=== PATIENT | male | born 1980 | race Caucasian/White ===

== ENCOUNTER 2023-05-05 07:19 | Inpatient (IN) | payer BC ==
[2023-05-05] MEDS ORDERED: ONDANSETRON 4 MG/2 ML VIAL IVP STA (07:59)
[2023-05-05] MEDS ORDERED: MORPHINE SULFATE 4 MG/ML SYRINGE IV STA (07:59)
[2023-05-05] MEDS ORDERED: SODIUM CHLORIDE 0.9% 1,000 ML IV STA (07:59)
--- NOTE | 2023-05-05 08:16 | ED ---
General Adult HPI - General Chief complaint: Abdominal Pain Stated complaint: abd pain Time Seen by Provider: 05/05/23 07:29 Source: patient, EMS Mode of arrival: EMS - History of Present Illness Initial comments: Dictation was produced using [employer] dictation software. please excuse any grammatical, word or spelling errors. Chief Complaint: 43-year-old presents with abdominal pain History of Present Illness: Patient 43-year-old male presents with abdominal pain. He states that his symptoms lasted for several hours. Pain was able to moderate sleep. Patient states the pain as well as lower abdomen. He has had some diarrhea. Does complain of fever. Has a history of appendectomy. Denies any nausea or vomiting. No history of diverticulitis. The ROS documented in this emergency department record has been reviewed and confirmed by me. Those systems with pertinent positive or negative responses have been documented in the HPI. All other systems are other negative and/or noncontributory. - Related Data Home Medications Medication Instructions Recorded Confirmed Chlorthalidone [Hygroton] 25 mg PO DAILY 05/05/23 05/05/23 Ezetimibe [Zetia] 10 mg PO DAILY 05/05/23 05/05/23 Fenofibrate [Lofibra] 160 mg PO DAILY 05/05/23 05/05/23 Metoprolol Succinate (ER) [Toprol 50 mg PO DAILY 05/05/23 05/05/23 Xl] Pravastatin Sodium [Pravachol] 80 mg PO DAILY 05/05/23 05/05/23 Allergies Allergy/AdvReac Type Severity Reaction Status Date / Time Penicillins AdvReac Unknown Verified 05/05/23 08:09 Childhood Review of Systems ROS Statement: Those systems with pertinent positive or pertinent negative responses have been documented in the HPI. ROS Other: All systems not noted in ROS Statement are negative. Past Medical History Past Medical History: Hyperlipidemia, Hypertension History of Any Multi-Drug Resistant Organisms: None Reported Past Surgical History: Appendectomy Additional Past Surgical History / Comment(s): Left hip. Back surgery, L2 Smoking Status: Current every day smoker Past Alcohol Use History: Occasional Past Drug Use History: None Reported General Exam - General Exam Comments Initial Comments: PHYSICAL EXAM: General Impression: Alert and oriented x3, acute distress due to pain HEENT: Normocephalic atraumatic, extra-ocular movements intact, pupils equal and reactive to light bilaterally, mucous membranes moist. Cardiovascular: Heart regular rate and rhythm Chest: Able to complete full sentences, no retractions, no tachypnea Abdomen: Peritoneal, palpatory tenderness through the lower abdomen Musculoskeletal: Pulses present and equal in all extremities, no peripheral edema Motor: no focal deficits noted Neurological: CN II-XII grossly intact, no focal motor or sensory deficits noted Skin: Intact with no visualized rashes Psych: Anxious Course Vital Signs 05/05/23 05/05/23 07:25 08:32 Temperature 101.2 F H Pulse Rate 109 H 105 H Respiratory 20 18 Rate Blood Pressure 139/86 145/93 O2 Sat by Pulse 98 94 L Oximetry EKG Findings - EKG Comments: EKG Findings:: My EKG interpretation: Ventricular rate 111, sinus tachycardia,. 134, QRS 80, QTC 367. No DC prolongation, no QTC prolongation, no ST or T-wave changes noted. Overall, this EKG is unremarkable Medical Decision Making - Medical Decision Making Was pt. sent in by a medical professional or institution (, PA, MUSEUM DOCENT, urgent care, hospital, or fdc...) When possible be specific @ -No Did you speak to anyone other than the patient for history (EMS, parent, family, police, friend...)? What history was obtained from this source @ - states that he had a similar brief episode couple weeks ago after eating seafood Did you review nursing and triage notes (agree or disagree)? Why? @ -I reviewed and agree with nursing and triage notes Were old charts reviewed (outside hosp., previous admission, EMS record, old EKG, old radiological studies, urgent care reports/EKG's, fdc records)? Report findings @ -No old charts were reviewed Differential Diagnosis (chest pain, altered mental status, abdominal pain women, abdominal pain men, vaginal bleeding, musculoskeletal, weakness, fever, dyspnea, syncope, headache, dizziness, GI bleed, back pain, seizure, CVA, palpatations, mental health)? @ -Differential Abdominal Pain Men: Appendicitis, cholecystitis, diverticulosis, ischemic bowel, pancreatitis, hepatitis, UTI, gastroenteritis, AAA, incarcerated hernia, bowel obstruction, constipation, inflammatory bowel, hepatitis, peptic ulcer disease, splenic infarction, perforated viscus, testicular torsion, this is not meant to be an all-inclusive list EKG interpreted by me (3pts min.). @ -None done X-rays interpreted by me (1pt min.). @ -None done CT interpreted by me (1pt min.). @ -CT abdomen and pelvis shows diverticulitis with small foci of intraperitoneal air U/S interpreted by me (1pt. min.). @ -None done What testing was considered but not performed or refused? (CT, X-rays, U/S, labs)? Why? @ -None What meds were considered but not given or refused? Why? @ -None Did you discuss the management of the patient with other professionals (professionals i.e. , PA, MUSEUM DOCENT, lab, RT, psych nurse, manager social services, clinical informatics physician, teacher, ammunition officer, employment case manager)? Give summary @ -Discussed with general surgeon for admission Was smoking cessation discussed for >3mins.? @ -No Was critical care preformed (if so, how long)? @ -No Were there social determinants of health that impacted care today? How? (Homelessness, low income, unemployed, alcoholism, drug addiction, transportation, low edu. Level, literacy, decrease access to med. care, detention, rehab)? @ -No Was there de-escalation of care discussed even if they declined (Discuss DNR or withdrawal of care, Hospice)? DNR status @ -No What co-morbidities impacted this encounter? (DM, HTN, Smoking, COPD, CAD, Cancer, CVA, ARF, Chemo, Hep., AIDS, mental health diagnosis, sleep apnea, morbid obesity)? @ -None Was patient admitted / discharged? Hospital course, mention meds given and r oute, prescriptions, significant lab abnormalities, going to OR and other pertinent info. @ -43-year-old male presents with severe abdominal pain acutely. Vital signs upon arrival shows fever of 101.2, tachycardic, rest of vital signs within acceptable limits. Leukocytosis of 19.4. Metabolic panel shows lactic acidosis of 3.0. Computed tomography scan shows Acute diverticulitis. Patient given antibiotics and analgesics. Will be admitted to general surgery for further ca re. Undiagnosed new problem with uncertain prognosis? @ -No Drug Therapy requiring intensive monitoring for toxicity (Heparin, Nitro, Insulin, Cardizem)? @ -No Were any procedures done? @ -No Diagnosis/symptom? Acute, or Chronic, or Acute on Chronic? Uncomplicated ( without systemic symptoms) or Complicated (systemic symptoms)? @ -Diverticulitis Side effects of treatment? @ -No Exacerbation, Progression, or Severe Exacerbation? @ -No Poses a threat to life or bodily function? How? (Chest pain, [place], [place], pneumonia, PE, COPD, DKA, ARF, appy, cholecystitis, CVA, Diverticulitis, Homicidal, Suicidal, threat to staff... and all critical care pts) @ -yes - Lab Data Result diagrams: 05/05/23 08:03 05/05/23 08:03 Lab Results 05/05/23 05/05/23 05/05/23 Range/Units 08:03 08:03 08:03 WBC 19.4 H (3.8-10.6) k/uL RBC 4.80 (4.30-5.90) m/uL Hgb 16.4 (13.0-17.5) gm/dL Hct 46.6 (39.0-53.0) % MCV 97.0 (80.0-100.0) fL MCH 34.2 (25.0-35.0) pg MCHC 35.3 (31.0-37.0) g/dL RDW 11.4 L (11.5-15.5) % Plt Count 249 (150-450) k/uL MPV 8.5 Neutrophils % 93 % Lymphocytes % 4 % Monocytes % 2 % Eosinophils % 0 % Basophils % 0 % Neutrophils # 18.1 H (1.3-7.7) k/uL Lymphocytes # 0.7 L (1.0-4.8) k/uL Monocytes # 0.4 (0-1.0) k/uL Eosinophils # 0.1 (0-0.7) k/uL Basophils # 0.0 (0-0.2) k/uL PT 10.3 (10.0-12.5) sec INR 0.9 (<1.2) APTT 23.3 (22.0-30.0) sec Sodium 139 (137-145) mmol/L Potassium 3.6 (3.5-5.1) mmol/L Chloride 101 (98-107) mmol/L Carbon Dioxide 23 (22-30) mmol/L Anion Gap 15 mmol/L BUN 11 (9-20) mg/dL Creatinine 0.72 (0.66-1.25) mg/dL Est GFR (CKD-EPI)AfAm >90 (>60 ml/min/1.73 sqM) Est GFR (CKD-EPI)NonAf >90 (>60 ml/min/1.73 sqM) Glucose 132 H (74-99) mg/dL Plasma Lactic Acid Palomo (0.7-2.0) mmol/L Calcium 9.6 (8.4-10.2) mg/dL Total Bilirubin 0.6 (0.2-1.3) mg/dL AST 30 (17-59) U/L ALT 41 (4-49) U/L Alkaline Phosphatase 76 (38-126) U/L Total Protein 7.1 (6.3-8.2) g/dL Albumin 4.4 (3.5-5.0) g/dL 05/05/23 Range/Units 08:03 WBC (3.8-10.6) k/uL RBC (4.30-5.90) m/uL Hgb (13.0-17.5) gm/dL Hct (39.0-53.0) % MCV (80.0-100.0) fL MCH (25.0-35.0) pg MCHC (31.0-37.0) g/dL RDW (11.5-15.5) % Plt Count (150-450) k/uL MPV Neutrophils % % Lymphocytes % % Monocytes % % Eosinophils % % Basophils % % Neutrophils # (1.3-7.7) k/uL Lymphocytes # (1.0-4.8) k/uL Monocytes # (0-1.0) k/uL Eosinophils # (0-0.7) k/uL Basophils # (0-0.2) k/uL PT (10.0-12.5) sec INR (<1.2) APTT (22.0-30.0) sec Sodium (137-145) mmol/L Potassium (3.5-5.1) mmol/L Chloride (98-107) mmol/L Carbon Dioxide (22-30) mmol/L Anion Gap mmol/L BUN (9-20) mg/dL Creatinine (0.66-1.25) mg/dL Est GFR (CKD-EPI)AfAm (>60 ml/min/1.73 sqM) Est GFR (CKD-EPI)NonAf (>60 ml/min/1.73 sqM) Glucose (74-99) mg/dL Plasma Lactic Acid Palomo 3.0 H* (0.7-2.0) mmol/L Calcium (8.4-10.2) mg/dL Total Bilirubin (0.2-1.3) mg/dL AST (17-59) U/L ALT (4-49) U/L Alkaline Phosphatase (38-126) U/L Total Protein (6.3-8.2) g/dL Albumin (3.5-5.0) g/dL Disposition Clinical Impression: Diverticulitis Disposition: ADMITTED IP TO THIS HOSP Condition: Serious Referrals: Dre Solano DO [Primary Care Provider] - 1-2 days Decision Time: 09:14
[2023-05-05 08:26] LABS: INR 0.9 (<1.2); Partial Thromboplastin Time 23.3 sec (22.0-30.0); Prothrombin Time 10.3 sec (10.0-12.5)
[2023-05-05] MEDS ORDERED: ACETAMINOPHEN IV (For NPO) 1,000 MG in EMPTY BAG 1 BAG IVPB STA (08:29)
[2023-05-05 08:35] LABS: Basophils % (A) 0 %; Eosinophils # (A) 0.1 k/uL (0-0.7); Eosinophils % (A) 0 %; HCT 46.6 % (39.0-53.0); HGB 16.4 gm/dL (13.0-17.5); Lymphocytes # (A) 0.7 k/uL (1.0-4.8); Lymphocytes % (A) 4 %; MCH 34.2 pg (25.0-35.0); MCHC 35.3 g/dL (31.0-37.0); Mean Platelet Volume 8.5; Monocytes # (A) 0.4 k/uL (0-1.0); Monocytes % (A) 2 %; Neutrophils # (A) 18.1 k/uL (1.3-7.7); Neutrophils % (A) 93 %; Platelet Count 249 k/uL (150-450); RDW 11.4 % (11.5-15.5); WBC 19.4 k/uL (3.8-10.6)
[2023-05-05 08:38] LABS: ALT 41 U/L (4-49); AST 30 U/L (17-59); African American GFR (CKD) >90 (>60 ml/min/1.73 sqM); Albumin 4.4 g/dL (3.5-5.0); Alkaline Phosphatase 76 U/L (38-126); Anion Gap 15 mmol/L; Blood Urea Nitrogen 11 mg/dL (9-20); Calcium 9.6 mg/dL (8.4-10.2); Carbon Dioxide 23 mmol/L (22-30); Chloride 101 mmol/L (98-107); Glucose 132 mg/dL (74-99); Non-African American GFR(CKD) >90 (>60 ml/min/1.73 sqM); Potassium 3.6 mmol/L (3.5-5.1); Sodium 139 mmol/L (137-145); Total Bilirubin 0.6 mg/dL (0.2-1.3); Total Protein 7.1 g/dL (6.3-8.2)
--- NOTE | 2023-05-05 08:48 | CT ---
EXAMINATION TYPE: CT abdomen pelvis w con CT DLP: 2328.9 mGycm, Automated exposure control for dose reduction was used. DATE OF EXAM: 05/05/2023 8:28 AM COMPARISON: None. CLINICAL INDICATION:Male, 43 years old with history of fever, lower abdominal pain; llq PAIN TECHNIQUE: Axial CT of the abdomen and pelvis. Sagittal and coronal reformats were created on a [employer] workstation. Contrast used:100 mL of Isovue 300 with IV Contrast, (none if empty) Oral contrast used: without Oral Contrast (none if empty) FINDINGS: LOWER CHEST: Mild bibasilar dependent atelectasis. Heart size upper normal. ABDOMEN Study is limited by some motion, artifacts from the patient's arms and left hip arthroplasty. LIVER: Diffusely diminished attenuation of the hepatic parenchyma suggestive of moderate steatosis. N o evidence of mass. Hepatic vasculature unremarkable. GALLBLADDER AND BILE DUCTS: Unremarkable. PANCREAS: Unremarkable. SPLEEN: Unremarkable. ADRENAL GLANDS: Unremarkable. KIDNEYS AND URETERS: Kidneys enhance symmetrically. There is no evidence of hydronephrosis. Tiny hypo dense nodule from the posterior left kidney, not fully characterized but likely a cyst. PELVIS BLADDER: Unremarkable REPRODUCTIVE: Nonenlarged prostate with several coarse parenchymal calcifications. ABDOMEN & PELVIS STOMACH AND BOWEL: Stomach and small bowel are nondistended, no evidence of obstruction. Appendix is not identified with certainty, however there is no inflammatory process seen in the RLQ. Fatty infilt ration ileocecal valve. Mild stool and gas throughout the colon, greatest distally. Multiple colonic diverticula are seen. There are moderate inflammatory changes in the proximal sigmoid region which ap pear likely centered on a diverticulum suggesting of diverticulitis, versus focal colitis. There is i nflammatory haziness and edema of the adjacent mesentery with no discrete fluid and gas containing co llection to suggest abscess at this time. PERITONEUM/RETROPERITONEUM: There is the suggestion of a few tiny foci of extraluminal gas attenuatio n in the left lower quadrant, mid abdomen and left upper quadrant, without large volume pneumoperiton eum seen at this time. Small amounts of fluid tracking from the left lower quadrant along the left pa racolic gutter. VASCULATURE: Mild atherosclerotic calcifications are present throughout the abdominal aorta and its b ranches. No evidence of aortic aneurysm. MUSCULOSKELETAL: Left hip arthroplasty, appears intact and normally aligned. Moderate right hip osteo arthropathy. Mild degenerative change of the SI joints and spine. No acute bony abnormality detected. LYMPH NODES: No gross evidence for lymphadenopathy. SOFT TISSUE/ABDOMINAL WALL: Small fat-containing left inguinal hernia. IMPRESSION: 1. Findings suggestive of diverticulitis in the left lower quadrant involving the proximal sigmoid, as described. 2. Suggestion of a few tiny foci of extraluminal gas, which can be seen with microperforation. No la rge pneumoperitoneum is identified. 3. Inflammatory changes and edema in the mesentery adjacent to #1. No discrete abscess is seen at th is time. 4. Moderate hepatic steatosis.
[2023-05-05] MEDS ORDERED: CEFEPIME 2 GM in SODIUM CHLORIDE 0.9% 100 ML IVPB STA (08:58)
[2023-05-05] MEDS ORDERED: NALOXONE 0.4 MG/ML 1 ML VIAL IV PRN (09:11)
[2023-05-05] MEDS ORDERED: MORPHINE SULFATE 4 MG/ML SYRINGE IV PRN (09:11)
[2023-05-05] MEDS: SODIUM CHLORIDE 0.9% 1,000 ML IV SCH ×4 (09:43→23:36)
[2023-05-05] MEDS: HYDROmorphone 1 MG/ML 1 ML SYRINGE IVP PRN ×4 (11:06→23:30)
[2023-05-05] MEDS: metroNIDAZOLE-NS PMX 500 MG in SALINE 1 100ML.BAG IVPB SCH ×2 (11:06→20:07)
--- NOTE | 2023-05-05 11:20 | P.GSHP ---
History of Present Illness H&P Date: 05/05/23 CHIEF COMPLAINT: Abdominal pain HISTORY OF PRESENT ILLNESS: This is a 43-year-old male who presented with left lower quadrant abdominal pain that started at 3 AM. Patient reports the severe pain came on suddenly. He is rating his pain about a 10 out of 10. He did have pain in the left lower quadrant about 2 weeks ago thought it was constipation. He reports no history of diverticulitis she's never had a colonoscopy. He has been having fevers chills sweats. He has been tachycardic temp as high as 101.2. He has elevated white count and computed tomography scan had shown evidence of findings suggestive of diverticulitis in the left lower quadrant involving the proximal sigmoid colon. Suggestion of a few tiny foci of extraluminal gas which can be seen with a microperforation. No large pneumoperitoneum. No evidence of abscess. Past surgical history includes appendectomy. Patient denies any cardiac history of being unable to. PAST MEDICAL HISTORY: Hyperlipidemia, hypertension PAST SURGICAL HISTORY: Appendectomy MEDICATIONS: See below ALLERGIES: See below SOCIAL HISTORY: No illicit drug use. Nicotine dependence. REVIEW OF SYSTEMS: CONSTITUTIONAL: Denies fever or chills. HEENT: Denies blurred vision, vision changes, or eye pain. Denies hemoptysis CARDIOVASCULAR: Denies chest pain or pressure. RESPIRATORY: No shortness of breath. GASTROINTESTINAL: See HPI for pertinent findings HEMATOLOGIC: Denies bleeding disorders. GENITOURINARY: Denies any blood in urine or increased urinary frequency. SKIN: Denies pruitis. Denies rash. PHYSICAL EXAM: VITAL SIGNS: Reviewed GENERAL: Well-developed in no acute distress. HEENT: No sclera icterus. Extraocular movements grossly intact. Moist buccal mucosa. Head is atraumatic, normocephalic. No nasal drainage. ABDOMEN: Soft. Mildly distended. Tenderness to palpation across the lower abdomen mostly in the left lower quadrant. NEUROLOGIC: Alert and oriented. Cranial nerves II through XII grossly intact. LABORATORY DATA: WBC 19.4 Hgb 16.4 platelets 249 Sodium 139 potassium 3.6 creatinine 0.72 Lactic acid 3.0 LFTs normal IMAGING: Computed tomography scan abdomen and pelvis reports findings suggestive of diverticulitis in the left lower quadrant involving the proximal sigmoid colon. Suggestion of effusion tiny foci of extraluminal gas which can be seen with microperforation. No large pneumoperitoneum. Inflammatory changes and edema in the mesentery. No discrete abscess. Moderate hepatic steatosis. ASSESSMENT: 1. Acute sigmoid diverticulitis with microperforation 2. Sepsis PLAN: -Start IV antibiotics -Keep patient nothing by mouth -Continue IV fluids -Add IV Dilaudid -Given 2 L IV fluid bolus -Consult medicine service for medical management -Continue to monitor patient closely -GI prophylaxis Protonix and DVT prophylaxis subcu heparin Physician Reaming Machine Tender note has been reviewed by physician. Signing provider agrees with the documented findings, assessment, and plan of care. Past Medical History Past Medical History: Hyperlipidemia, Hypertension History of Any Multi-Drug Resistant Organisms: None Reported Past Surgical History: Appendectomy Additional Past Surgical History / Comment(s): Left hip. Back surgery, L2 Smoking Status: Current every day smoker Past Alcohol Use History: Occasional Past Drug Use History: None Reported Medications and Allergies Home Medications Medication Instructions Recorded Confirmed Type Chlorthalidone [Hygroton] 25 mg PO DAILY 05/05/23 05/05/23 History Ezetimibe [Zetia] 10 mg PO DAILY 05/05/23 05/05/23 History Fenofibrate [Lofibra] 160 mg PO DAILY 05/05/23 05/05/23 History Metoprolol Succinate (ER) [Toprol 50 mg PO DAILY 05/05/23 05/05/23 History Xl] Pravastatin Sodium [Pravachol] 80 mg PO DAILY 05/05/23 05/05/23 History Allergies Allergy/AdvReac Type Severity Reaction Status Date / Time Penicillins AdvReac Unknown Verified 05/05/23 08:09 Childhood Surgical - Exam Vital Signs Temp Pulse Resp BP Pulse Ox 101.2 F H 109 H 20 139/86 98 05/05/23 07:25 05/05/23 07:25 05/05/23 07:25 05/05/23 07:25 05/05/23 07:25 Results - Labs 05/05/23 08:03 05/05/23 08:03 Abnormal Lab Results - Last 24 Hours (Table) 05/05/23 05/05/23 05/05/23 Range/Units 08:03 08:03 08:03 WBC 19.4 H (3.8-10.6) k/uL RDW 11.4 L (11.5-15.5) % Neutrophils # 18.1 H (1.3-7.7) k/uL Lymphocytes # 0.7 L (1.0-4.8) k/uL Glucose 132 H (74-99) mg/dL Plasma Lactic Acid Palomo 3.0 H* (0.7-2.0) mmol/L Diabetes panel 05/05/23 Range/Units 08:03 Sodium 139 (137-145) mmol/L Potassium 3.6 (3.5-5.1) mmol/L Chloride 101 (98-107) mmol/L Carbon Dioxide 23 (22-30) mmol/L BUN 11 (9-20) mg/dL Creatinine 0.72 (0.66-1.25) mg/dL Glucose 132 H (74-99) mg/dL Calcium 9.6 (8.4-10.2) mg/dL AST 30 (17-59) U/L ALT 41 (4-49) U/L Alkaline Phosphatase 76 (38-126) U/L Total Protein 7.1 (6.3-8.2) g/dL Albumin 4.4 (3.5-5.0) g/dL Calcium panel 05/05/23 Range/Units 08:03 Calcium 9.6 (8.4-10.2) mg/dL Albumin 4.4 (3.5-5.0) g/dL Pituitary panel 05/05/23 Range/Units 08:03 Sodium 139 (137-145) mmol/L Potassium 3.6 (3.5-5.1) mmol/L Chloride 101 (98-107) mmol/L Carbon Dioxide 23 (22-30) mmol/L BUN 11 (9-20) mg/dL Creatinine 0.72 (0.66-1.25) mg/dL Glucose 132 H (74-99) mg/dL Calcium 9.6 (8.4-10.2) mg/dL Adrenal panel 05/05/23 Range/Units 08:03 Sodium 139 (137-145) mmol/L Potassium 3.6 (3.5-5.1) mmol/L Chloride 101 (98-107) mmol/L Carbon Dioxide 23 (22-30) mmol/L BUN 11 (9-20) mg/dL Creatinine 0.72 (0.66-1.25) mg/dL Glucose 132 H (74-99) mg/dL Calcium 9.6 (8.4-10.2) mg/dL Total Bilirubin 0.6 (0.2-1.3) mg/dL AST 30 (17-59) U/L ALT 41 (4-49) U/L Alkaline Phosphatase 76 (38-126) U/L Total Protein 7.1 (6.3-8.2) g/dL Albumin 4.4 (3.5-5.0) g/dL
[2023-05-05] MEDS: HEPARIN SODIUM,PORCINE 5,000 UNIT/ML 1 ML VIAL SQ SCH ×2 (13:32→20:08)
[2023-05-05] MEDS: PANTOPRAZOLE 40 MG/10 ML VIAL IVP SCH (13:32)
[2023-05-05] MEDS: CEFEPIME 2 GM in SODIUM CHLORIDE 0.9% 100 ML IVPB SCH ×2 (15:46→23:31)
--- NOTE | 2023-05-05 17:14 | P.CONS ---
History of Present Illness - Reason for Consult Consult date: 05/05/23 - Chief Complaint Medical management - History of Present Illness 43-year-old man with a medical history of hypertension, hyperlipidemia presented for evaluation of abdominal pain. Patient says that he's had abdominal pain for last 2 weeks, but this went away until it came back with sudden onset today early in the morning and was associated with fevers, chills, nausea. The pain was left-sided in the lower region and felt very sharp. He has never had pain of this nature before. Medicine was consulted by surgical service for medical management. Patient reports fevers, chills, nausea. Denies vomiting. Patient denies chest pain, palpitations, sick, presyncope, cough, dyspnea. Patient reports abdominal pain. Patient denies diarrhea, hematochezia, melena, dysuria, dyschezia, numbness/weakness or tremors. In the emergency room, patient was febrile to 101.2 him a heart rate 109, 139 /86, 98% on 2 L nasal cannula. CBC was remarkable for white blood cell count of 19.4. Basic medical problems unremarkable. Lactic acid was 3. Liver function tests are unremarkable. Coags are unremarkable. EKG showed sinus tachycardia with normal axis, no evidence of ischemia. Abdomen/pelvis CT showed findings just of diverticulitis and left lower quadrant with tiny foci of extraluminal gas consistent with microperforation as well as inflammatory changes and edema in the mesentery adjacent to the diverticulum. Case was discussed with the surgical service requested medicine consultation. All Systems reviewed and pertinent positives and negatives noted in HPI, all other symptoms are negative Gen: in no apparent distress, resting comfortably in bed Eyes: PERRL, no scleral injection or icterus HENT: normocephalic, atraumatic, good hearing acuity, moist mucous membranes Neck: no tracheal deviation, full range of motion Resp: good air exchange, breathing comfortably with no accessory muscle use, no tactile fremitus, clear to auscultation bilaterally CVS: good distal perfusion x 4, no pitting edema, tachycardic with no murmurs GI: soft, tenderness to palpation the left lower quadrant : no suprapubic tenderness, no CVAT, bautista catheter not present MSK: no clubbing, no cyanosis, no noted contractures of extremities Skin: no noted rashes, petechiae; temperature of skin is appropriate Neuro: moving all extremities without signs of weakness, CN II-XII intact Psych: cooperative, euthymic mood, insight and judgment intact Labs and imaging as above Assessment/plan: Sepsis secondary to perforated diverticulitis -Admitted to surgical service -Agree with antibiotics: Cefepime 2 g every 8 hours, Flagyl 500 mg every 8 hours -Agree with IV fluids: Normal saline running at 130 mL per hour -Agree with PPI 40 mg IV push daily Hypertension Hyperlipidemia -Resume patient's pravastatin, metoprolol -Hold patient's fenofibrate, Zetia, chlorthalidone Patient is full code Past Medical History Past Medical History: Hyperlipidemia, Hypertension History of Any Multi-Drug Resistant Organisms: None Reported Past Surgical History: Appendectomy Additional Past Surgical History / Comment(s): Left hip. Back surgery, L2 Smoking Status: Current every day smoker Past Alcohol Use History: Occasional Past Drug Use History: None Reported Medications and Allergies Home Medications Medication Instructions Recorded Confirmed Type Chlorthalidone [Hygroton] 25 mg PO DAILY 05/05/23 05/05/23 History Ezetimibe [Zetia] 10 mg PO DAILY 05/05/23 05/05/23 History Fenofibrate [Lofibra] 160 mg PO DAILY 05/05/23 05/05/23 History Metoprolol Succinate (ER) [Toprol 50 mg PO DAILY 05/05/23 05/05/23 History Xl] Pravastatin Sodium [Pravachol] 80 mg PO DAILY 05/05/23 05/05/23 History Allergies Allergy/AdvReac Type Severity Reaction Status Date / Time Penicillins AdvReac Unknown Verified 05/05/23 08:09 Childhood Physical Exam Osteopathic Statement: *. No significant issues noted on an osteopathic structural exam other than those noted in the History and Physical/Consult. Vitals: Vital Signs Temp Pulse Resp BP Pulse Ox 05/05/23 16:00 98.4 F 84 17 118/84 92 L 05/05/23 15:00 91 17 117/81 93 L 05/05/23 14:33 94 18 100/70 96 05/05/23 13:00 93 17 111/72 93 L 05/05/23 10:50 100.4 F H 05/05/23 10:00 103 H 17 120/84 94 L 05/05/23 08:32 105 H 18 145/93 94 L 05/05/23 07:25 101.2 F H 109 H 20 139/86 98 Intake and Output 05/05/23 05/05/23 05/05/23 06:59 14:59 22:59 Other: Weight 154.221 kg Results CBC & Chem 7: 05/05/23 08:03 05/05/23 08:03 Labs: Abnormal Lab Results - Last 24 Hours (Table) 05/05/23 05/05/23 05/05/23 Range/Units 08:03 08:03 08:03 WBC 19.4 H (3.8-10.6) k/uL RDW 11.4 L (11.5-15.5) % Neutrophils # 18.1 H (1.3-7.7) k/uL Lymphocytes # 0.7 L (1.0-4.8) k/uL Glucose 132 H (74-99) mg/dL Plasma Lactic Acid Palomo 3.0 H* (0.7-2.0) mmol/L
[2023-05-05] MEDS ORDERED: CEFEPIME 2 GM in SODIUM CHLORIDE 0.9% 100 ML IVPB SCH (21:00)
[2023-05-06] MEDS: HYDROmorphone 1 MG/ML 1 ML SYRINGE IVP PRN ×6 (03:40→22:06)
[2023-05-06] MEDS: metroNIDAZOLE-NS PMX 500 MG in SALINE 1 100ML.BAG IVPB SCH ×3 (03:40→19:07)
[2023-05-06 07:50] LABS: Basophils % (A) 0 %; Eosinophils # (A) 0.2 k/uL (0-0.7); Eosinophils % (A) 1 %; HCT 40.9 % (39.0-53.0); HGB 13.8 gm/dL (13.0-17.5); Lymphocytes # (A) 1.3 k/uL (1.0-4.8); Lymphocytes % (A) 8 %; MCH 33.5 pg (25.0-35.0); MCHC 33.6 g/dL (31.0-37.0); MCV 99.6 fL (80.0-100.0); Mean Platelet Volume 8.2; Monocytes # (A) 0.5 k/uL (0-1.0); Monocytes % (A) 3 %; Neutrophils # (A) 14.8 k/uL (1.3-7.7); Neutrophils % (A) 87 %; Platelet Count 212 k/uL (150-450); RBC 4.11 m/uL (4.30-5.90); RDW 11.6 % (11.5-15.5); WBC 17.1 k/uL (3.8-10.6)
[2023-05-06 08:00] LABS: African American GFR (CKD) >90 (>60 ml/min/1.73 sqM); Anion Gap 10 mmol/L; Blood Urea Nitrogen 10 mg/dL (9-20); Calcium 8.2 mg/dL (8.4-10.2); Carbon Dioxide 25 mmol/L (22-30); Chloride 103 mmol/L (98-107); Glucose 124 mg/dL (74-99); Non-African American GFR(CKD) >90 (>60 ml/min/1.73 sqM); Potassium 3.4 mmol/L (3.5-5.1); Sodium 138 mmol/L (137-145)
[2023-05-06] MEDS: PANTOPRAZOLE 40 MG/10 ML VIAL IVP SCH (08:42)
[2023-05-06] MEDS: HEPARIN SODIUM,PORCINE 5,000 UNIT/ML 1 ML VIAL SQ SCH ×2 (08:46→22:05)
[2023-05-06] MEDS: CEFEPIME 2 GM in SODIUM CHLORIDE 0.9% 100 ML IVPB SCH ×3 (10:32→23:54)
[2023-05-06] MEDS: METOPROLOL SUCCINATE (ER) 50 MG TAB.ER.24H PO SCH (10:35)
[2023-05-06] MEDS: PRAVASTATIN SODIUM 80 MG TAB PO SCH (10:35)
--- NOTE | 2023-05-06 10:43 | P.PN ---
Subjective Progress Note Date: 05/06/23 VAN. Patient states that his pain is improved. No N/V. No F/C. No SOB or CP. Admits to small amount of flatus no BM. Ambulatory and voiding. Objective - Vital Signs Vital signs: Vital Signs Temp 98.8 F 05/06/23 08:00 Pulse 86 05/06/23 08:00 Resp 18 05/06/23 08:00 BP 131/81 05/06/23 08:00 Pulse Ox 91 L 05/06/23 08:00 FiO2 Intake & Output 05/05/23 05/06/23 05/06/23 18:59 06:59 18:59 Weight 154.221 kg Other: Voiding Method Toilet # Voids 3 1 - Exam Gen: AxO, NAD Pulm: non-labored respirations Abd: soft, moderately-tender in LLQ, moderately distended, no guarding/rebound/rigidity Extrem: no edema seen - Labs CBC & Chem 7: 05/06/23 07:33 05/06/23 07:33 Labs: Abnormal Lab Results - Last 24 Hours (Table) 05/06/23 05/06/23 Range/Units 07:33 07:33 WBC 17.1 H (3.8-10.6) k/uL RBC 4.11 L (4.30-5.90) m/uL Neutrophils # 14.8 H (1.3-7.7) k/uL Potassium 3.4 L (3.5-5.1) mmol/L Glucose 124 H (74-99) mg/dL Calcium 8.2 L (8.4-10.2) mg/dL Assessment and Plan Assessment: Patient is a 43 year old male who presents with sigmoid diverticulitis with microperforation with plan for conservative management Plan: -CLD as tolerated -IVF hydration -IV abx -PRN pain and nausea control -DVT/GI PPx -No acute surgical intervention Iftikhar Sadler MD General Surgery
[2023-05-06] MEDS ORDERED: ACETAMINOPHEN ORAL SUSP 160 MG/5 ML CUP PO PRN (10:50)
[2023-05-06] MEDS ORDERED: ACETAMINOPHEN TAB 500 MG TAB PO PRN (11:02)
--- NOTE | 2023-05-06 14:45 | P.PN ---
Subjective Progress Note Date: 05/06/23 No new complaints. Reports improvement in pain. Gen: in no apparent distress, resting comfortably in bed Eyes: PERRL, no scleral injection or icterus HENT: normocephalic, atraumatic, good hearing acuity, moist mucous membranes Neck: no tracheal deviation, full range of motion Resp: good air exchange, breathing comfortably with no accessory muscle use, no tactile fremitus, clear to auscultation bilaterally CVS: good distal perfusion x 4, no pitting edema, tachycardic with no murmurs GI: soft, tenderness to palpation the left lower quadrant : no suprapubic tenderness, no CVAT, bautista catheter not present MSK: no clubbing, no cyanosis, no noted contractures of extremities Skin: no noted rashes, petechiae; temperature of skin is appropriate Neuro: moving all extremities without signs of weakness, CN II-XII intact Psych: cooperative, euthymic mood, insight and judgment intact Hospital Course: 43-year-old man with a medical history of hypertension, hyperlipidemia presented for evaluation of abdominal pain. In the emergency room, patient was febrile to 101.2 him a heart rate 109, 139/86, 98% on 2 L nasal cannula. CBC was remarkable for white blood cell count of 19.4. Basic medical problems unremarkable. Lactic acid was 3. Liver function tests are unremarkable. Coags are unremarkable. EKG showed sinus tachycardia with normal axis, no evidence of ischemia. Abdomen/pelvis CT showed findings just of diverticulitis and left lower quadrant with tiny foci of extraluminal gas consistent with microperforation as well as inflammatory changes and edema in the mesentery adjacent to the diverticulum. Case was discussed with the surgical service requested medicine consultation. Assessment/plan: Sepsis secondary to perforated diverticulitis -Admitted to surgical service -Agree with antibiotics: Cefepime 2 g every 8 hours, Flagyl 500 mg every 8 hours -Agree with IV fluids: Normal saline running at 130 mL per hour -Agree with PPI 40 mg IV push daily Hypertension Hyperlipidemia -Resume patient's pravastatin, metoprolol -Hold patient's fenofibrate, Zetia, chlorthalidone Patient is full code Objective - Vital Signs Vital signs: Vital Signs Temp 99.1 F 05/06/23 14:00 Pulse 52 L 05/06/23 14:00 Resp 18 05/06/23 14:00 BP 154/94 05/06/23 14:00 Pulse Ox 91 L 05/06/23 14:00 FiO2 Intake & Output 05/05/23 05/06/23 05/06/23 18:59 06:59 18:59 Intake Total 400 Balance 400 Weight 154.221 kg Intake: Oral 400 Other: Voiding Method Toilet # Voids 3 1 - Labs CBC & Chem 7: 05/06/23 07:33 05/06/23 07:33 Labs: Abnormal Lab Results - Last 24 Hours (Table) 05/06/23 05/06/23 Range/Units 07:33 07:33 WBC 17.1 H (3.8-10.6) k/uL RBC 4.11 L (4.30-5.90) m/uL Neutrophils # 14.8 H (1.3-7.7) k/uL Potassium 3.4 L (3.5-5.1) mmol/L Glucose 124 H (74-99) mg/dL Calcium 8.2 L (8.4-10.2) mg/dL
[2023-05-06] MEDS: SODIUM CHLORIDE 0.9% 1,000 ML IV SCH ×2 (17:17→17:32)
[2023-05-06] MEDS ORDERED: POTASSIUM CHLORIDE ER 20 MEQ TAB.ER PO STA (17:48)
[2023-05-07] MEDS: SODIUM CHLORIDE 0.9% 1,000 ML IV SCH ×4 (01:00→23:31)
[2023-05-07] MEDS: metroNIDAZOLE-NS PMX 500 MG in SALINE 1 100ML.BAG IVPB SCH ×3 (02:16→19:19)
[2023-05-07] MEDS: HYDROmorphone 1 MG/ML 1 ML SYRINGE IVP PRN ×4 (02:16→14:54)
[2023-05-07] MEDS: PANTOPRAZOLE 40 MG/10 ML VIAL IVP SCH (07:44)
[2023-05-07] MEDS: CEFEPIME 2 GM in SODIUM CHLORIDE 0.9% 100 ML IVPB SCH ×3 (07:50→23:28)
[2023-05-07] MEDS: HEPARIN SODIUM,PORCINE 5,000 UNIT/ML 1 ML VIAL SQ SCH ×2 (07:53→21:46)
[2023-05-07] MEDS ORDERED: SIMETHICONE 40 MG/0.6 ML DROPS 2,000 MG/30 ML BOTTLE PO PRN (08:51)
[2023-05-07] MEDS: METOPROLOL SUCCINATE (ER) 50 MG TAB.ER.24H PO SCH (09:59)
[2023-05-07] MEDS: PRAVASTATIN SODIUM 80 MG TAB PO SCH (09:59)
--- NOTE | 2023-05-07 10:32 | P.PN ---
Subjective Progress Note Date: 05/07/23 Pt has passed flatus, had several BMs. Tolerating CLD. Reports feeling very bloated today. Gen: in no apparent distress, resting comfortably in bed Eyes: PERRL, no scleral injection or icterus HENT: normocephalic, atraumatic, good hearing acuity, moist mucous membranes Neck: no tracheal deviation, full range of motion Resp: good air exchange, breathing comfortably with no accessory muscle use, no tactile fremitus, clear to auscultation bilaterally CVS: good distal perfusion x 4, no pitting edema, tachycardic with no murmurs GI: soft, tenderness to palpation the left lower quadrant : no suprapubic tenderness, no CVAT, bautista catheter not present MSK: no clubbing, no cyanosis, no noted contractures of extremities Skin: no noted rashes, petechiae; temperature of skin is appropriate Neuro: moving all extremities without signs of weakness, CN II-XII intact Psych: cooperative, euthymic mood, insight and judgment intact Hospital Course: 43-year-old man with a medical history of hypertension, hyperlipidemia presented for evaluation of abdominal pain. In the emergency room, patient was febrile to 101.2 him a heart rate 109, 139/86, 98% on 2 L nasal cannula. CBC was remarkable for white blood cell count of 19.4. Basic medical problems unremarkable. Lactic acid was 3. Liver function tests are unremarkable. Coags are unremarkable. EKG showed sinus tachycardia with normal axis, no evidence of ischemia. Abdomen/pelvis CT showed findings just of diverticulitis and left lower quadrant with tiny foci of extraluminal gas consistent with microperforation as well as inflammatory changes and edema in the mesentery adjacent to the diverticulum. Case was discussed with the surgical service requested medicine consultation. Assessment/plan: Sepsis secondary to perforated diverticulitis -Admitted to surgical service -Agree with antibiotics: Cefepime 2 g every 8 hours, Flagyl 500 mg every 8 hours -Agree with IV fluids: Normal saline running at 130 mL per hour -Agree with PPI 40 mg IV push daily -Add simethicone 80mg QID PRN Hypertension Hyperlipidemia -Resume patient's pravastatin, metoprolol -Hold patient's fenofibrate, Zetia, chlorthalidone Patient is full code Objective - Vital Signs Vital signs: Vital Signs Temp 99.1 F 05/07/23 08:00 Pulse 86 05/07/23 08:00 Resp 18 05/07/23 08:00 BP 151/89 05/07/23 08:00 Pulse Ox 92 L 05/07/23 08:00 FiO2 Intake & Output 05/06/23 05/07/23 05/07/23 18:59 06:59 18:59 Intake Total 400 Balance 400 Intake: Oral 400 Other: Voiding Method Toilet Toilet # Voids 3 2 - Labs CBC & Chem 7: 05/06/23 07:33 05/06/23 07:33
[2023-05-07 11:57] LABS: Appearance,Urine Clear (Clear); Color,Urine Yellow; Glucose,Urine (UA) Negative (Negative); PH, Urine 6.5 (5.0-8.0); Protein,Urine Negative (Negative)
[2023-05-07 11:58] LABS: Bilirubin,Urine Negative (Negative); Blood,Urine Negative (Negative); Ketones,Urine Trace (Negative); Leukocyte Esterase,Urine Negative (Negative); Nitrite,Urine Negative (Negative); Urobilinogen,Urine <2.0 mg/dL (<2.0)
[2023-05-07] MEDS: IOPAMIDOL CONTRAST (ORAL USE) VIAL PO PRN ×2 (12:08→13:01)
--- NOTE | 2023-05-07 12:09 | P.PN ---
Progress Note - Text Progress Note Date: 05/07/23 The patient is up and laying the hallway. She has complaints of left lower quadrant pain. On exam vital signs are still. Abdomen is soft. There is tenderness left lower quadrant. The patient will be scheduled for repeat computed tomography scan of the abdomen to evaluate his diverticulitis today. He will remain nothing by mouth.
--- NOTE | 2023-05-07 13:53 | CT ---
EXAMINATION TYPE: CT abdomen pelvis w con DATE OF EXAM: 05/07/2023 COMPARISON: 05/05/2023 HISTORY: 43-year-old male with abdominal pain, diverticulitis follow-up TECHNIQUE: Contiguous axial scanning of the abdomen and pelvis following administration of 100 ml Iso blaze 300 IV contrast. Delayed images through the kidneys and coronal/sagittal reconstructions perform ed. CT DLP: 1735.9 mGycm Automated exposure control for dose reduction was used. FINDINGS: Heart normal size without pericardial effusion. Trace left effusion has developed. Prominen t dependent atelectasis. Liver is enlarged at 22.9 cm with severe fatty infiltration. Portal venous system is patent. No bilia ry ductal dilatation. Some vicarious excretion of contrast into the gallbladder. No abnormal gallbladder distention. Adrenal glands, kidneys, spleen, and pancreas within normal limits. New small bowel dilatation up to 3.8 cm without transition point. Redemonstrated sigmoid diverticulosis. Mild abdominal pelvic ascites. Ongoing inflammatory edema along the proximal sigmoid colon. A small r egional focus of free air remains, axial image 69a and 71 at the site of patient's diverticular perfo ration. Residual inflammatory wall thickening of the sigmoid colon near. The small foci of free air in the left upper quadrant have resolved. No mesenteric or retroperitoneal adenopathy. Bladder distended. Prostate gland 4.7 cm wide. No pelvic lymphadenopathy. Bones: Mild to moderate degenerative change right hip. Status post left total arthroplasty. IMPRESSION: 1. REDEMONSTRATION OF PERFORATED PROXIMAL SIGMOID DIVERTICULITIS. MODERATE INFLAMMATION REMAINS HERE. THE SMALL FOCI OF FREE AIR IN THE LEFT UPPER QUADRANT HAVE RESOLVED. SMALL FOCUS OF FREE AIR REMAINS IN THE VICINITY OF THE PERFORATION. NO ABSCESS. 2. NEW MILD ABDOMINOPELVIC ASCITES FLUID. NEW TRACE LEFT PLEURAL EFFUSION. 3. NEW SMALL BOWEL ILEUS WITH DILATATION UP TO 3.8 CM. 4. 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
[2023-05-08] MEDS: metroNIDAZOLE-NS PMX 500 MG in SALINE 1 100ML.BAG IVPB SCH ×4 (03:49→23:43)
[2023-05-08] MEDS: PANTOPRAZOLE 40 MG/10 ML VIAL IVP SCH (08:22)
[2023-05-08] MEDS: CEFEPIME 2 GM in SODIUM CHLORIDE 0.9% 100 ML IVPB SCH ×2 (08:22→15:58)
[2023-05-08] MEDS: HEPARIN SODIUM,PORCINE 5,000 UNIT/ML 1 ML VIAL SQ SCH ×2 (08:22→21:54)
[2023-05-08] MEDS: PRAVASTATIN SODIUM 80 MG TAB PO SCH (08:23)
[2023-05-08] MEDS: METOPROLOL SUCCINATE (ER) 50 MG TAB.ER.24H PO SCH (08:23)
[2023-05-08 08:53] LABS: Basophils # (A) 0.1 k/uL (0-0.2); Basophils % (A) 1 %; Eosinophils # (A) 0.3 k/uL (0-0.7); Eosinophils % (A) 3 %; HCT 40.3 % (39.0-53.0); HGB 13.9 gm/dL (13.0-17.5); Lymphocytes # (A) 1.4 k/uL (1.0-4.8); Lymphocytes % (A) 14 %; MCH 33.6 pg (25.0-35.0); MCHC 34.5 g/dL (31.0-37.0); MCV 97.2 fL (80.0-100.0); Mean Platelet Volume 8.9; Monocytes # (A) 0.4 k/uL (0-1.0); Monocytes % (A) 4 %; Neutrophils # (A) 7.5 k/uL (1.3-7.7); Neutrophils % (A) 76 %; Platelet Count 255 k/uL (150-450); RBC 4.15 m/uL (4.30-5.90); RDW 11.7 % (11.5-15.5); WBC 9.9 k/uL (3.8-10.6)
[2023-05-08 09:18] LABS: African American GFR (CKD) >90 (>60 ml/min/1.73 sqM); Anion Gap 10 mmol/L; Blood Urea Nitrogen 7 mg/dL (9-20); Calcium 8.4 mg/dL (8.4-10.2); Carbon Dioxide 25 mmol/L (22-30); Chloride 105 mmol/L (98-107); Glucose 127 mg/dL (74-99); Non-African American GFR(CKD) >90 (>60 ml/min/1.73 sqM); Potassium 3.7 mmol/L (3.5-5.1); Sodium 140 mmol/L (137-145)
[2023-05-08] MEDS: SODIUM CHLORIDE 0.9% 1,000 ML IV SCH ×2 (12:58→15:58)
--- NOTE | 2023-05-08 13:16 | P.PN ---
Subjective Progress Note Date: 05/08/23 CHIEF COMPLAINT: Diverticulitis with microperforation HISTORY OF PRESENT ILLNESS: Patient reports his abdominal pain is improving. He rates his pain about a 3 out of 10. He does complain of abdominal bloating after some Jell-O and water. He has been having diarrhea and flatus. Afebrile. WBC is down from 17.1-9.9 Hgb 13.9 platelets 255 sodium 140 potassium 3.7 creatinine 0.52 computed tomography scan abdomen and pelvis redemonstration of perforated proximal sigmoid diverticulitis. Moderate inflammation remains. Small foci of free air in the left upper quadrant has resolved. Small focus of free air remains in the setting of the perforation. No abscess. New small bowel ileus with dilation up to 3.8 cm. PHYSICAL EXAM: VITAL SIGNS: Reviewed. GENERAL: Well-developed in no acute distress. ABDOMEN: Soft. Mildly distended. Mild tenderness to palpation left lower quadrant NEUROLOGIC: Alert and oriented. Cranial nerves II through XII grossly intact. ASSESSMENT: 1. Acute sigmoid Diverticulitis with microperforation PLAN: -Advance diet to clear liquids -Continue antibiotics -Medicine services consulted infectious disease -Encourage patient to ambulate -Repeat CBC in AM -GI prophylaxis Protonix and DVT prophylaxis subcu heparin Physician Vocational Aide note has been reviewed by physician. Signing provider agrees with the documented findings, assessment, and plan of care. Objective - Vital Signs Vital signs: Vital Signs Temp 98.0 F 05/08/23 07:00 Pulse 85 05/08/23 07:00 Resp 17 05/08/23 07:00 BP 139/82 05/08/23 07:00 Pulse Ox 95 05/08/23 07:00 FiO2 Intake & Output 05/07/23 05/08/23 05/08/23 18:59 06:59 18:59 Other: Voiding Method Toilet # Voids 2 2 - Labs CBC & Chem 7: 05/08/23 08:36 05/08/23 08:36 Labs: Abnormal Lab Results - Last 24 Hours (Table) 05/08/23 05/08/23 Range/Units 08:36 08:36 RBC 4.15 L (4.30-5.90) m/uL BUN 7 L (9-20) mg/dL Creatinine 0.52 L (0.66-1.25) mg/dL Glucose 127 H (74-99) mg/dL
--- NOTE | 2023-05-08 14:33 | P.PN ---
Subjective Progress Note Date: 05/08/23 43-year-old man with a medical history of hypertension, hyperlipidemia presented for evaluation of abdominal pain. In the emergency room, patient was febrile to 101.2 him a heart rate 109, 139/86, 98% on 2 L nasal cannula. CBC was remarkable for white blood cell count of 19.4. Basic medical problems un remarkable. Lactic acid was 3. Liver function tests are unremarkable. Coags are unremarkable. EKG showed sinus tachycardia with normal axis, no evidence of ischemia. Abdomen/pelvis CT showed findings just of diverticulitis and left lower quadrant with tiny foci of extraluminal gas consistent with microperforation as well as inflammatory changes and edema in the mesentery adjacent to the diverticulum. Case was discussed with the surgical service requested medicine consultation. Patient was started on Cefepime and Flagyl. He was continued on NS at 130 cc/hr and Protonix 40 mg IV QD. Surgery recommended repeat CT AP on 05/07 which showed perforated sigmoid diverticulitis with ascites and ileus. 05/08 Patient was seen and examined. at bedside. Patient reports hunger. Reports distended abdomen. Liquid bowel movements overnight > 10. Abdominal pain improved. CBC RBC 4.15. BMP BUN 7, Cr 0.52, glu 127. Discussed with Heike BRIAR WOOD SORTER. General: non toxic, no distress, appears at stated age Derm: warm, dry Head: atraumatic, normocephalic, symmetric Eyes: EOMI, no lid lag, anicteric sclera Cardiovascular: S1S2 reg, no murmur Lungs: Coarse BS bilateral, no rhonchi, no rales , no accessory muscle use Abd: Distended. + BS. Non tender to palpation Ext: no gross muscle atrophy, no edema, no contractures Neuro: no focal neuro deficits Psych: Alert, oriented, appropriate affect Based on my assessment of this patient, this patient meets a moderate complexity level of care. Patient has an acute diagnosis of ruptured sigmoid diverticulitis that poses a threat to life. Sepsis secondary to perforated diverticulitis: ID consulted. Continue Cefepime 2g IV TID and Flagyl 500 mg IV TID for now. Decreased NS from 130 to 75 cc/hr. Hypertension: Metoprolol 50 mg PO QD. Hyperlipidemia: Pravastatin 80 mg PO QHS. CODE STATUS: FULL CODE. DVT Prophylaxis: Heparin SQ. GI Prophylaxis: Protonix IV Designated medical POA if patient is not able to make medical decisions for themselves: I have reviewed the following otm consultant notes: Surgery note. I have reviewed the results of the following tests: CBC, BMP. I have ordered the following tests: CBC, BMP. I have discussed the care of this patient with the following independent historian: Discussed with RN. I have independently interpreted the following test below: I have discussed the management of this patient with the following physician: Discussed with Heike AMEZQUITA Objective - Vital Signs Vital signs: Vital Signs Temp 98.4 F 05/08/23 13:35 Pulse 79 05/08/23 13:35 Resp 21 05/08/23 13:35 BP 156/99 05/08/23 13:35 Pulse Ox 95 05/08/23 13:35 FiO2 Intake & Output 05/07/23 05/08/23 05/08/23 18:59 06:59 18:59 Other: Voiding Method Toilet # Voids 2 2 - Labs CBC & Chem 7: 05/08/23 08:36 05/08/23 08:36 Labs: Abnormal Lab Results - Last 24 Hours (Table) 05/08/23 05/08/23 Range/Units 08:36 08:36 RBC 4.15 L (4.30-5.90) m/uL BUN 7 L (9-20) mg/dL Creatinine 0.52 L (0.66-1.25) mg/dL Glucose 127 H (74-99) mg/dL
[2023-05-08] MEDS: HYDROmorphone 1 MG/ML 1 ML SYRINGE IVP PRN (17:28)
[2023-05-09] MEDS: CEFEPIME 2 GM in SODIUM CHLORIDE 0.9% 100 ML IVPB SCH ×4 (02:02→19:58)
[2023-05-09] MEDS: SODIUM CHLORIDE 0.9% 1,000 ML IV SCH ×2 (05:07→08:28)
[2023-05-09] MEDS: metroNIDAZOLE-NS PMX 500 MG in SALINE 1 100ML.BAG IVPB SCH ×2 (08:27→16:38)
[2023-05-09] MEDS: PRAVASTATIN SODIUM 80 MG TAB PO SCH (08:28)
[2023-05-09] MEDS: METOPROLOL SUCCINATE (ER) 50 MG TAB.ER.24H PO SCH (08:28)
[2023-05-09] MEDS: HEPARIN SODIUM,PORCINE 5,000 UNIT/ML 1 ML VIAL SQ SCH ×2 (08:28→19:59)
[2023-05-09] MEDS: PANTOPRAZOLE 40 MG/10 ML VIAL IVP SCH (08:28)
[2023-05-09 08:58] LABS: Basophils # (A) 0.04 X 10*3/uL (0.00-0.10); Basophils % (A) 0.5 %; Eosinophils # (A) 0.37 X 10*3/uL (0.04-0.35); Eosinophils % (A) 4.6 %; HCT 35.4 % (39.6-50.0); HGB 12.5 g/dL (13.0-17.0); Lymphocytes # (A) 1.68 X 10*3/uL (0.90-5.00); Lymphocytes % (A) 21.1 %; MCH 33.2 pg (27.0-32.0); MCHC 35.3 g/dL (32.0-37.0); MCV 93.9 FL (80.0-97.0); Mean Platelet Volume 10.8 FL (9.5-12.2); Monocytes % (A) 6.3 %; NRBC Per 100 WBC 0 X 10*3/uL (0.00-0.01); Neutrophils % (A) 66.5 %; Platelet Count 252 X 10*3/uL (140-440); RBC 3.77 X 10*6/uL (4.40-5.60); RDW 11.3 % (11.5-14.5); WBC 7.97 X 10*3/uL (4.50-10.00)
[2023-05-09 09:02] LABS: Blood Urea Nitrogen 8.4 mg/dL (9.0-27.0); Calcium 8.3 mg/dL (8.7-10.3); Chloride 107 mmol/L (96-109); Glucose 119 mg/dL (70-110); Potassium 3.4 mmol/L (3.5-5.5); Sodium 141 mmol/L (135-145)
--- NOTE | 2023-05-09 09:14 | P.CONS ---
History of Present Illness - Reason for Consult Consult date: 05/08/23 - History of Present Illness Patient is a 43-year-old male with a past medical history significant for hypertension and hyperlipidemia, presenting to the hospital on 05/05/2023 for evaluation of abdominal pain patient did have a severe symptoms mostly in the lower abdominal area and describing it to be sharp intensity was severe without significant radiation did have some diarrhea and fever no nausea no vomiting, patient on presentation to the hospital did have a fever of 101.2 degrees following height patient was not tachycardic hypotensive or hypoxic patient did have a white count of 19.4 with a left shift white count normalized as of this morning to 9.9 creatinine 0.68 lactic acid was elevated 3.0 CRP of 12.70 urine was negative patient did have a CT of abdominal pelvis finding suggesting diverticulitis the left lower quadrant proximal segment colon tiny foci of extraluminal gas can be seen with a microperforation no discrete abscess patient has been treated with IV cefepime and Flagyl patient did have a repeat CT abdominal pelvis completed yesterday afternoon redemonstration of the perforated proximal by diverticulitis moderate inflammation remains here small foci of free air in the left upper quadrant have resolved small foci of free air remains in the vicinity of perforation no abscess infectious disease was consulted today for further management of antibiotic therapy patient mention improvement in his abdominal symptoms of pain he did have some distention after he start eating yesterday but his symptoms are better as of today denies any nausea vomiting and is having some loose stools but no blood or mucus in the stools Past Medical History Past Medical History: Hyperlipidemia, Hypertension History of Any Multi-Drug Resistant Organisms: None Reported Past Surgical History: Appendectomy Additional Past Surgical History / Comment(s): Left hip. Back surgery, L2 Smoking Status: Current every day smoker Past Alcohol Use History: Occasional Past Drug Use History: None Reported Medications and Allergies Home Medications Medication Instructions Recorded Confirmed Type Chlorthalidone [Hygroton] 25 mg PO DAILY 05/05/23 05/05/23 History Ezetimibe [Zetia] 10 mg PO DAILY 05/05/23 05/05/23 History Fenofibrate [Lofibra] 160 mg PO DAILY 05/05/23 05/05/23 History Metoprolol Succinate (ER) [Toprol 50 mg PO DAILY 05/05/23 05/05/23 History Xl] Pravastatin Sodium [Pravachol] 80 mg PO DAILY 05/05/23 05/05/23 History Allergies Allergy/AdvReac Type Severity Reaction Status Date / Time Penicillins AdvReac Unknown Verified 05/05/23 08:09 Childhood Physical Exam Vitals: Vital Signs Temp Pulse Resp BP Pulse Ox 05/08/23 07:00 98.0 F 85 17 139/82 95 05/08/23 02:00 98.1 F 76 137/90 93 L 05/07/23 20:00 98.1 F 83 139/86 90 L 05/07/23 14:00 98.0 F 83 17 144/84 95 Intake and Output 05/07/23 05/08/23 05/08/23 22:59 06:59 14:59 Other: # Voids 2 2 Results CBC & Chem 7: 05/09/23 05:29 05/09/23 05:29 Labs: Abnormal Lab Results - Last 24 Hours (Table) 05/07/23 05/08/23 05/08/23 Range/Units 11:20 08:36 08:36 RBC 4.15 L (4.30-5.90) m/uL BUN 7 L (9-20) mg/dL Creatinine 0.52 L (0.66-1.25) mg/dL Glucose 127 H (74-99) mg/dL Urine Ketones Trace H (Negative) Assessment and Plan Plan: 1patient was in the hospital with sepsis in this patient did have fever tachycardia elevated white count and elevated lactic acid source is complicated diverticulitis with microperforation but no evidence of any abscess 2-patient with a penicillin allergy there will admit the number of antibiotics safe to use 3-plan is to continue with the cefepime and Flagyl along with bowel rest and the patient did have overall improvement in his symptoms and able to tolerate his diet plan to finish therapy with oral Ceftin and Flagyl on discharge Multiple questions concern answered We will follow on clinical condition and cultures to further adjust medication if needed Thank you for this consultation we will follow the patient along with you Dictation was produced using [employer] software. please excuse any grammatical, word or spelling errors. Time with Patient: Greater than 30
--- NOTE | 2023-05-09 13:07 | P.PN ---
Subjective Progress Note Date: 05/09/23 43-year-old man with a medical history of hypertension, hyperlipidemia presented for evaluation of abdominal pain. In the emergency room, patient was febrile to 101.2 him a heart rate 109, 139/86, 98% on 2 L nasal cannula. CBC was remarkable for white blood cell count of 19.4. Basic medical problems un remarkable. Lactic acid was 3. Liver function tests are unremarkable. Coags are unremarkable. EKG showed sinus tachycardia with normal axis, no evidence of ischemia. Abdomen/pelvis CT showed findings just of diverticulitis and left lower quadrant with tiny foci of extraluminal gas consistent with microperforation as well as inflammatory changes and edema in the mesentery adjacent to the diverticulum. Case was discussed with the surgical service requested medicine consultation. Patient was started on Cefepime and Flagyl. He was continued on NS at 130 cc/hr and Protonix 40 mg IV QD. Surgery recommended repeat CT AP on 05/07 which showed perforated sigmoid diverticulitis with ascites and ileus. 05/08 Patient was seen and examined. at bedside. Patient reports hunger. Reports distended abdomen. Liquid bowel movements overnight > 10. Abdominal pain improved. CBC RBC 4.15. BMP BUN 7, Cr 0.52, glu 127. Discussed with Heike FLEET DRIVER. 05/09 Patient was seen and examined. Doing well. Looking forward to going home. Diet advanced to FLD. CBC Hg 12.5 Hct 35.4. BMP K 3.4 bicarb 21, AG 13, glu 119. CRP 12.7. ID recommends continuing antibiotics. General: non toxic, no distress, appears at stated age Derm: warm, dry Head: atraumatic, normocephalic, symmetric Eyes: EOMI, no lid lag, anicteric sclera Cardiovascular: S1S2 reg, no murmur Lungs: Coarse BS bilateral, no rhonchi, no rales , no accessory muscle use Abd: Distended. + BS. Non tender to palpation Ext: no gross muscle atrophy, no edema, no contractures Neuro: no focal neuro deficits Psych: Alert, oriented, appropriate affect Based on my assessment of this patient, this patient meets a moderate complexity level of care. Patient has an acute diagnosis of ruptured sigmoid diverticulitis that poses a threat to life. Sepsis secondary to perforated diverticulitis: ID consulted. Continue Cefepime 2g IV TID and Flagyl 500 mg IV TID for now. NS 75 cc/hr. Hypertension: Metoprolol 50 mg PO QD. Hyperlipidemia: Pravastatin 80 mg PO QHS. CODE STATUS: FULL CODE. DVT Prophylaxis: Heparin SQ. GI Prophylaxis: Protonix IV Designated medical POA if patient is not able to make medical decisions for themselves: I have reviewed the following product consultant notes: Surgery, ID note. I have reviewed the results of the following tests: CBC, BMP. I have ordered the following tests: CBC, BMP. I have discussed the care of this patient with the following independent historian: I have independently interpreted the following test below: I have discussed the management of this patient with the following physician: Objective - Vital Signs Vital signs: Vital Signs Temp 98.6 F 05/09/23 07:19 Pulse 64 05/09/23 07:19 Resp 17 05/09/23 07:19 BP 136/94 05/09/23 07:19 Pulse Ox 96 05/09/23 07:19 FiO2 Intake & Output 05/08/23 05/09/23 05/09/23 18:59 06:59 18:59 Other: # Voids 6 2 1 # Bowel Movements 1 - Labs CBC & Chem 7: 05/09/23 05:29 05/09/23 05:29 Labs: Abnormal Lab Results - Last 24 Hours (Table) 05/09/23 05/09/23 Range/Units 05:29 05:29 RBC 3.77 L (4.40-5.60) X 10*6/uL Hgb 12.5 L (13.0-17.0) g/dL Hct 35.4 L (39.6-50.0) % MCH 33.2 H (27.0-32.0) pg RDW 11.3 L (11.5-14.5) % Immature Gran # 0.08 H (0.00-0.04) X 10*3/uL Eosinophils # 0.37 H (0.04-0.35) X 10*3/uL Potassium 3.4 L (3.5-5.5) mmol/L Carbon Dioxide 21.0 L (21.6-31.8) mmol/L Anion Gap 13.00 H (4.00-12.00) mmol/L BUN 8.4 L (9.0-27.0) mg/dL Glucose 119 H (70-110) mg/dL Calcium 8.3 L (8.7-10.3) mg/dL C-Reactive Protein 12.70 H (0.00-0.80) mg/dL
--- NOTE | 2023-05-09 16:15 | P.PN ---
Subjective Progress Note Date: 05/09/23 CHIEF COMPLAINT: Diverticulitis with microperforation HISTORY OF PRESENT ILLNESS: Patient reports his abdominal pain is improving. He rates his pain about a 3 out of 10. He does complain of abdominal bloating after some Jell-O and water. He has been having diarrhea and flatus. Afebrile. WBC is down from 17.1-9.9 Hgb 13.9 platelets 255 sodium 140 potassium 3.7 creatinine 0.52 computed tomography scan abdomen and pelvis redemonstration of perforated proximal sigmoid diverticulitis. Moderate inflammation remains. Small foci of free air in the left upper quadrant has resolved. Small focus of free air remains in the setting of the perforation. No abscess. New small bowel ileus with dilation up to 3.8 cm. PHYSICAL EXAM: VITAL SIGNS: Reviewed. GENERAL: Well-developed in no acute distress. ABDOMEN: Soft. Mildly distended. Mild tenderness to palpation left lower quadrant NEUROLOGIC: Alert and oriented. Cranial nerves II through XII grossly intact. ASSESSMENT: 1. Acute sigmoid Diverticulitis with microperforation PLAN: -Advance diet to Full liquids -Continue antibiotics per ID service -Anticipate possible discharge in a.m. -GI prophylaxis Protonix and DVT prophylaxis subcu heparin Physician Language Asst note has been reviewed by physician. Signing provider agrees with the documented findings, assessment, and plan of care. Objective - Vital Signs Vital signs: Vital Signs Temp 98.6 F 05/09/23 07:19 Pulse 64 05/09/23 07:19 Resp 17 05/09/23 07:19 BP 136/94 05/09/23 07:19 Pulse Ox 96 05/09/23 07:19 FiO2 Intake & Output 05/08/23 05/09/23 05/09/23 18:59 06:59 18:59 Other: # Voids 6 2 1 # Bowel Movements 1 - Labs CBC & Chem 7: 05/09/23 05:29 05/09/23 05:29 Labs: Abnormal Lab Results - Last 24 Hours (Table) 05/09/23 05/09/23 Range/Units 05:29 05:29 RBC 3.77 L (4.40-5.60) X 10*6/uL Hgb 12.5 L (13.0-17.0) g/dL Hct 35.4 L (39.6-50.0) % MCH 33.2 H (27.0-32.0) pg RDW 11.3 L (11.5-14.5) % Immature Gran # 0.08 H (0.00-0.04) X 10*3/uL Eosinophils # 0.37 H (0.04-0.35) X 10*3/uL Potassium 3.4 L (3.5-5.5) mmol/L Carbon Dioxide 21.0 L (21.6-31.8) mmol/L Anion Gap 13.00 H (4.00-12.00) mmol/L BUN 8.4 L (9.0-27.0) mg/dL Glucose 119 H (70-110) mg/dL Calcium 8.3 L (8.7-10.3) mg/dL C-Reactive Protein 12.70 H (0.00-0.80) mg/dL
--- NOTE | 2023-05-09 16:45 | P.PN ---
Subjective Progress Note Date: 05/09/23 Principal diagnosis: Reason for follow-up his complicated diverticulitis with perforation and penicillin ALLERGY Patient is a 43-year-old male with a past medical history significant for hypertension and hyperlipidemia, presenting to the hospital on 05/05/2023 for evaluation of abdominal pain, patient been diagnosed with a complicated diverticulitis with perforation but no mention of any abscess On today's evaluation that is 05/09/2023, the patient denies having any fever or any chills, the patient is breathing comfortably on room air no chest pain shortness of breath or cough the patient abdominal pain has decreased in intensity no nausea no vomiting and is tolerating his clear liquid diet Patient white count is 7.97, creatinine 0.6 Objective - Vital Signs Vital signs: Vital Signs Temp 98.6 F 05/09/23 07:19 Pulse 64 05/09/23 07:19 Resp 17 05/09/23 07:19 BP 136/94 05/09/23 07:19 Pulse Ox 96 05/09/23 07:19 FiO2 Intake & Output 05/08/23 05/09/23 05/09/23 18:59 06:59 18:59 Other: # Voids 6 2 1 # Bowel Movements 1 - Exam GENERAL DESCRIPTION: A middle-age male up in the chair in no distress RESPIRATORY SYSTEM: Unlabored breathing , clear to auscultation anteriorly HEART: S1 S2 regular rate and rhythm , ABDOMEN: Soft , no tenderness EXTREMITIES: No edema feet - Labs CBC & Chem 7: 05/09/23 05:29 05/09/23 05:29 Labs: Abnormal Lab Results - Last 24 Hours (Table) 05/09/23 05/09/23 Range/Units 05:29 05:29 RBC 3.77 L (4.40-5.60) X 10*6/uL Hgb 12.5 L (13.0-17.0) g/dL Hct 35.4 L (39.6-50.0) % MCH 33.2 H (27.0-32.0) pg RDW 11.3 L (11.5-14.5) % Immature Gran # 0.08 H (0.00-0.04) X 10*3/uL Eosinophils # 0.37 H (0.04-0.35) X 10*3/uL Potassium 3.4 L (3.5-5.5) mmol/L Carbon Dioxide 21.0 L (21.6-31.8) mmol/L Anion Gap 13.00 H (4.00-12.00) mmol/L BUN 8.4 L (9.0-27.0) mg/dL Glucose 119 H (70-110) mg/dL Calcium 8.3 L (8.7-10.3) mg/dL C-Reactive Protein 12.70 H (0.00-0.80) mg/dL Assessment and Plan (1) Leukocytosis Current Visit: Yes Status: Acute Code(s): D72.829 - ELEVATED WHITE BLOOD CELL COUNT, UNSPECIFIED SNOMED Code(s): 102479622 (2) Penicillin allergy Current Visit: Yes Status: Acute Code(s): Z88.0 - ALLERGY STATUS TO PENICILLIN SNOMED Code(s): 29972597 (3) Perforation of sigmoid colon due to diverticulitis Current Visit: Yes Status: Acute Code(s): K57.20 - DVTRCLI OF LG INT W PERFORATION AND ABSCESS W/O BLEEDING SNOMED Code(s): 1867005277739113 Plan: 1patient was in the hospital with sepsis in this patient did have fever tachycardia elevated white count and elevated lactic acid source is complicated diverticulitis with microperforation but no evidence of any abscess 2-patient with a penicillin allergy that will admit the number of antibiotics safe to use Patient seemed to have shown some clinical improvement and we'll continue with the cefepime and Flagyl however plan to finish therapy with oral Ceftin and Flagyl on discharge Multiple questions concern answered Dictation was produced using [employer] dictation software. please excuse any grammatical, word or spelling errors. Time with Patient: Less than 30
[2023-05-10] MEDS: metroNIDAZOLE-NS PMX 500 MG in SALINE 1 100ML.BAG IVPB SCH ×2 (00:10→08:15)
[2023-05-10] MEDS: CEFEPIME 2 GM in SODIUM CHLORIDE 0.9% 100 ML IVPB SCH (03:52)
[2023-05-10] MEDS: SODIUM CHLORIDE 0.9% 1,000 ML IV SCH (06:19)
[2023-05-10] MEDS: PANTOPRAZOLE 40 MG/10 ML VIAL IVP SCH (08:14)
[2023-05-10] MEDS: PRAVASTATIN SODIUM 80 MG TAB PO SCH (08:18)
[2023-05-10] MEDS: METOPROLOL SUCCINATE (ER) 50 MG TAB.ER.24H PO SCH (08:18)
[2023-05-10] MEDS: HEPARIN SODIUM,PORCINE 5,000 UNIT/ML 1 ML VIAL SQ SCH (08:18)
[2023-05-10 08:30] VITALS: BP 148/95; PULSE 80; RESP 16; TEMP 97.6
[2023-05-10 10:25] LABS: Basophils # (A) 0.1 k/uL (0-0.2); Basophils % (A) 1 %; Eosinophils # (A) 0.3 k/uL (0-0.7); Eosinophils % (A) 4 %; HCT 40.1 % (39.0-53.0); HGB 13.7 gm/dL (13.0-17.5); Lymphocytes % (A) 23 %; MCH 33.3 pg (25.0-35.0); MCHC 34.2 g/dL (31.0-37.0); MCV 97.2 fL (80.0-100.0); Mean Platelet Volume 8.8; Monocytes # (A) 0.3 k/uL (0-1.0); Monocytes % (A) 4 %; Neutrophils # (A) 5.6 k/uL (1.3-7.7); Neutrophils % (A) 66 %; Platelet Count 310 k/uL (150-450); RBC 4.12 m/uL (4.30-5.90); RDW 12.2 % (11.5-15.5); WBC 8.6 k/uL (3.8-10.6)
[2023-05-10 10:48] LABS: African American GFR (CKD) >90 (>60 ml/min/1.73 sqM); Anion Gap 12 mmol/L; Blood Urea Nitrogen 9 mg/dL (9-20); Calcium 8.7 mg/dL (8.4-10.2); Carbon Dioxide 20 mmol/L (22-30); Chloride 108 mmol/L (98-107); Glucose 137 mg/dL (74-99); Non-African American GFR(CKD) >90 (>60 ml/min/1.73 sqM); Potassium 3.6 mmol/L (3.5-5.1); Sodium 140 mmol/L (137-145)
--- NOTE | 2023-05-10 11:00 | P.PN ---
Subjective Progress Note Date: 05/10/23 43-year-old man with a medical history of hypertension, hyperlipidemia presented for evaluation of abdominal pain. In the emergency room, patient was febrile to 101.2 him a heart rate 109, 139/86, 98% on 2 L nasal cannula. CBC was remarkable for white blood cell count of 19.4. Basic medical problems un remarkable. Lactic acid was 3. Liver function tests are unremarkable. Coags are unremarkable. EKG showed sinus tachycardia with normal axis, no evidence of ischemia. Abdomen/pelvis CT showed findings just of diverticulitis and left lower quadrant with tiny foci of extraluminal gas consistent with microperforation as well as inflammatory changes and edema in the mesentery adjacent to the diverticulum. Case was discussed with the surgical service requested medicine consultation. Patient was started on Cefepime and Flagyl. He was continued on NS at 130 cc/hr and Protonix 40 mg IV QD. Surgery recommended repeat CT AP on 05/07 which showed perforated sigmoid diverticulitis with ascites and ileus. 05/08 Patient was seen and examined. at bedside. Patient reports hunger. Reports distended abdomen. Liquid bowel movements overnight > 10. Abdominal pain improved. CBC RBC 4.15. BMP BUN 7, Cr 0.52, glu 127. Discussed with Heike POST OFFICE MARKUP CLERK. 05/09 Patient was seen and examined. Doing well. Looking forward to going home. Diet advanced to FLD. CBC Hg 12.5 Hct 35.4. BMP K 3.4 bicarb 21, AG 13, glu 119. CRP 12.7. ID recommends continuing antibiotics. 05/10 Patient was seen and examined. Doing well. Tolerating FLD well. CBC RBC count 4.12. BMP Cl 108, bicarb 20, Cr 0.53, glu 137. General: non toxic, no distress, appears at stated age Derm: warm, dry Head: atraumatic, normocephalic, symmetric Eyes: EOMI, no lid lag, anicteric sclera Cardiovascular: S1S2 reg, no murmur Lungs: Coarse BS bilateral, no rhonchi, no rales , no accessory muscle use Abd: Distended. + BS. Non tender to palpation Ext: no gross muscle atrophy, no edema, no contractures Neuro: no focal neuro deficits Psych: Alert, oriented, appropriate affect Based on my assessment of this patient, this patient meets a moderate complexity level of care. Patient has an acute diagnosis of ruptured sigmoid diverticulitis that poses a threat to life. Sepsis secondary to perforated diverticulitis: ID consulted. Continue Cefepime 2g IV TID and Flagyl 500 mg IV TID for now. IVF discontinued. Hypertension: Metoprolol 50 mg PO QD. Hyperlipidemia: Pravastatin 80 mg PO QHS. Plans to transition to oral antibiotics on discharge. CODE STATUS: FULL CODE. DVT Prophylaxis: Heparin SQ. GI Prophylaxis: Protonix IV Designated medical POA if patient is not able to make medical decisions for themselves: I have reviewed the following desktop support consultant notes: Surgery, ID note. I have reviewed the results of the following tests: CBC, BMP. I have ordered the following tests: I have discussed the care of this patient with the following independent historian: I have independently interpreted the following test below: I have discussed the management of this patient with the following physician: Objective - Vital Signs Vital signs: Vital Signs Temp 98.5 F 05/10/23 01:43 Pulse 61 05/10/23 01:43 Resp 18 05/10/23 01:43 BP 124/79 05/10/23 01:43 Pulse Ox 95 05/10/23 01:43 FiO2 Intake & Output 05/09/23 05/10/23 05/10/23 18:59 06:59 18:59 Other: Voiding Method Toilet # Voids 1 1 # Bowel Movements 1 - Labs CBC & Chem 7: 05/10/23 10:15 05/10/23 10:15 Labs: Abnormal Lab Results - Last 24 Hours (Table) 05/09/23 05/09/23 Range/Units 05:29 05:29 RBC 3.77 L (4.40-5.60) X 10*6/uL Hgb 12.5 L (13.0-17.0) g/dL Hct 35.4 L (39.6-50.0) % MCH 33.2 H (27.0-32.0) pg RDW 11.3 L (11.5-14.5) % Immature Gran # 0.08 H (0.00-0.04) X 10*3/uL Eosinophils # 0.37 H (0.04-0.35) X 10*3/uL Potassium 3.4 L (3.5-5.5) mmol/L Carbon Dioxide 21.0 L (21.6-31.8) mmol/L Anion Gap 13.00 H (4.00-12.00) mmol/L BUN 8.4 L (9.0-27.0) mg/dL Glucose 119 H (70-110) mg/dL Calcium 8.3 L (8.7-10.3) mg/dL C-Reactive Protein 12.70 H (0.00-0.80) mg/dL
--- NOTE | 2023-05-10 12:28 | P.DS ---
Providers Date of admission: 05/05/23 09:11 Expected date of discharge: 05/10/23 Attending physician: Swapnil Chambers Consults: 05/05/23 11:00 Consult Physician Routine Consulting Provider: Samir Gavin Consult Reason/Comments: medical management Do you want consulting provider notified?: Yes 05/08/23 09:39 Consult Physician Routine Consulting Provider: Zulma Cortez Consult Reason/Comments: perforated diverticulitis Do you want consulting provider notified?: Yes [facility] Course: Discharge diagnosis 1. Acute sigmoid Diverticulitis with microperforation managed conservatively Hospital course This is a 43-year-old male who presented with left lower quadrant abdominal pain with fever and elevated white count. He had a computed tomography scan that showed evidence of diverticulitis in the left lower quadrant involving the sigmoid colon and suggestion of a few tiny foci of extraluminal gas which can be seen with microperforation. Patient started on IV antibiotics. Patient pain improved. He was able to tolerate advancement of diet. He had no further fevers. He has been followed by infectious disease and medical service. They have cleared him for discharge. Patient is up ambulating. Tolerating diet. Currently no abdominal pain. White count has normalized. He is stable for discharge and will continue oral antibiotics at home for 10 more days. Please refer to chart for any further details. Physician V Belt Inspector note has been reviewed by physician. Signing provider agrees with the documented findings, assessment, and plan of care. Patient Condition at Discharge: Stable Plan - Discharge Summary Discharge Rx Participant: Yes New Discharge Prescriptions: New cefUROXime axetiL [Ceftin] 500 mg PO BID 10 Days #20 tab metroNIDAZOLE [Flagyl] 500 mg PO TID #30 tab Continue Metoprolol Succinate (ER) [Toprol XL] 50 mg PO DAILY Fenofibrate [Lofibra] 160 mg PO DAILY Chlorthalidone [Hygroton] 25 mg PO DAILY Pravastatin Sodium [Pravachol] 80 mg PO DAILY Ezetimibe [Zetia] 10 mg PO DAILY Discharge Medication List Chlorthalidone [Hygroton] 25 mg PO DAILY 05/05/23 [History] Ezetimibe [Zetia] 10 mg PO DAILY 05/05/23 [History] Fenofibrate [Lofibra] 160 mg PO DAILY 05/05/23 [History] Metoprolol Succinate (ER) [Toprol XL] 50 mg PO DAILY 05/05/23 [History] Pravastatin Sodium [Pravachol] 80 mg PO DAILY 05/05/23 [History] cefUROXime axetiL [Ceftin] 500 mg PO BID 10 Days #20 tab 05/10/23 [Rx] metroNIDAZOLE [Flagyl] 500 mg PO TID #30 tab 05/10/23 [Rx] Follow up Appointment(s)/Referral(s): Dre Solano DO [Primary Care Provider] - 1-2 days (office is closed at time of discharge. Please call to schedule appointment ) Swapnil Chambers MD [STAFF PHYSICIAN] - 05/23/23 1:10 pm Patient Instructions/Handouts: Diverticulitis (DC), Ileus (DC), Ileus (GEN) Discharge Disposition: HOME SELF-CARE
== END 2023-05-10 12:21 | disposition home or self-care (01) | DRG 872 ==
LOC: EC 07:19 → 4SSUR 09:11
PROVIDERS: ADMIT Surgery; ATTEND Surgery
DX: A41.9 Sepsis, unspecified organism (principal); R18.8 Other ascites; K56.7 Ileus, unspecified; K57.20 Diverticulitis of large intestine with perforation and abscess without bleeding; Z28.310 Unvaccinated for COVID-19; E78.5 Hyperlipidemia, unspecified; I10 Essential (primary) hypertension; F17.200 Nicotine dependence, unspecified, uncomplicated; Z79.899 Other long term (current) drug therapy; Z88.0 Allergy status to penicillin
CPT/HCPCS: 36415; 74177; 80048; 80053; 81003; 83605; 85025; 85610; 85730; 86140; 96361; 96365; 96366; 96367; 96372; 96375; 96376; 99285

== ENCOUNTER → 2024-02-21 | Outpatient (CLI) | payer BC ==
--- NOTE | 2024-02-21 13:11 | CA ---
Exercise Stress Test Report Name: Trenton Bond Exam Date: 02/21/2024 08:44 Exam Location: [place] Stress Ht (in): 69 Wt (lb): 236 BSA: 2.22 Ordering Phys: Dre Solano DO Referring Phys: Debra Carson PAC Technologist: Brown Antonio Age: 43 Gender: M : 1980 Procedure CPT: Indications: R07.9 CHEST PAIN ICD-10 Codes: Patient History: Chest pain, Jaw pain, hypertension and shortness of breath. Medications: Meds past 24 hrs: Pretest Chest Pain: STRESS TEST Brijesh Protocol Exercise Duration (min:sec): 09:[address] Depressions (mm): Angina Score: Arboleda Score: Resting HR (bpm): 64 Peak HR (bpm): 148 Resting BP (mmHg): 112 / 81 Peak BP (mmHg): 211 / 92 MPHR: 176 Target HR: 150 % MPHR: 84 METS: 10.9 Total Dose: Peak Dose: Atropine: Double Product: 26659 BP Response: Stress Termination: Reached target heart rate Stress Symptoms: Dyspnea Stress Summary: ECG ANALYSIS Resting ECG: Stress ECG: CONCLUSIONS Excellent exercise tolerance The patient exercised for 9 minutes and 24 seconds and achieved 10.9 METS The patient achieved 84% of maximum predicted heart rate No ST or T wave abnormalities but the patient developed frequent PVCs on the recovery Dr. Marty Balderas MD (Electronically Signed) Final Date: 21 February 2024 13:09
== END | disposition home or self-care (01) ==
LOC: RADNMMAIN 07:59
PROVIDERS: ATTEND Family Medicine
DX: R07.9 Chest pain, unspecified
CPT/HCPCS: 93017